=== PATIENT | male | born 1960 ===

== ENCOUNTER 2021-08-19 18:36 | Emergency (ER) | payer SELFPAY ==
--- NOTE | 2021-08-19 18:52 | EDM.PDOC ---
ED HPI GENERAL MEDICAL PROBLEM - General Stated Complaint: DIABETIC EMERGENCY Time Seen by Provider: 08/19/21 18:48 Source of Information: Reports: Patient History Limitations: Reports: No Limitations - History of Present Illness INITIAL COMMENTS - FREE TEXT/NARRATIVE: pt comes in by EMS after hypoglycemic episode, he passed ut shortly after he took NovoLog 8 units while having dinner, his BS noted to be in the 30s, he was started on d50 by EMS and gained consciousness, BS now here 86, pt is alert and oriented, tolerating PO fluids, denies any pain, / any resp/ CV/ GI sx or any other concerns. ED ROS GENERAL - Review of Systems Review Of Systems: See Below Constitutional: Reports: Weakness, Fatigue. Denies: Fever, Diaphoresis HEENT: Reports: No Symptoms Respiratory: Reports: No Symptoms Cardiovascular: Reports: No Symptoms GI/Abdominal: Reports: No Symptoms Skin: Reports: No Symptoms Neurological: Reports: Dizziness. Denies: Seizure Psychiatric: Reports: No Symptoms ED EXAM, GENERAL - Physical Exam Exam: See Below Exam Limited By: No Limitations General Appearance: Alert, Anxious Nose: Normal Inspection Throat/Mouth: Normal Inspection, Normal Oropharynx Head: Atraumatic, Normocephalic Neck: Normal Inspection, Supple, Non-Tender Respiratory/Chest: No Respiratory Distress, Lungs Clear Cardiovascular: Normal Peripheral Pulses, Regular Rate, Rhythm, No Murmur GI/Abdominal: Normal Bowel Sounds, Soft, Non-Tender Neurological: Alert, Oriented, CN II-XII Intact, No Motor/Sensory Deficits Psychiatric: Anxious Skin Exam: Warm, Dry Course - Vital Signs Text/Narrative:: shortly after arrival , pt stated he is feeling fine and signed AMA. pt is indeed coherent, and was allowed to do so, his vitals are stable and ordered labs were canceled. dx... hypoglycemic episode/ resolved/ incomplete work-up. . . - Orders/Labs/Meds Orders: Active Orders 24 hr Category Date Time Status CBC WITH AUTO DIFF [HEME] Stat Lab 08/19/21 18:54 Ordered COMPREHENSIVE METABOLIC PN,CMP [CHEM] Stat Lab 08/19/21 18:54 Ordered Dextrose 5%-Normal Saline with KCl 20 mEq @ 150 mL/Hr ( Med 08/19/21 19:00 Ordered 1000 mL) Dextrose 5%-0.9% NaCl with KCl [D5 NS with 20 mEq KCl] 1,000 ml IV ASDIRECTED Medication Orders Potassium Chloride/Dextrose/Sod Cl (D5 Ns With 20 Meq Kcl) 1,000 mls @ 150 mls/hr IV ASDIRECTED [facility] Labs: Laboratory Tests 08/19/21 08/19/21 08/19/21 Range/Units 18:39 18:49 19:07 POC Glucose 69 L 81 121 H (80-116) mg/dL Meds: Medications Generic Name Dose Route Start Last Admin Trade Name Lina PRN Reason Stop Dose Admin Potassium Chloride/Dextrose/Sod Cl 1,000 mls @ 150 mls/hr 08/19/21 19:00 D5 Ns With 20 Meq Kcl IV ASDIRECTED [facility] Departure - Departure Time of Disposition: 19:31 Disposition: Against Medical Advice 07 Clinical Impression: Hypoglycemia - Discharge Information - My Orders Last 24 Hours: My Active Orders 08/19/21 18:54 CBC WITH AUTO DIFF [HEME] Stat COMPREHENSIVE METABOLIC PN,CMP [CHEM] Stat 08/19/21 19:00 Dextrose 5%-Normal Saline with KCl 20 mEq @ 150 mL/Hr (1000 mL) Dextrose 5%-0.9% NaCl with KCl [D5 NS with 20 mEq KCl] 1,000 ml IV ASDIRECTED - Assessment/Plan Last 24 Hours: My Active Orders 08/19/21 18:54 CBC WITH AUTO DIFF [HEME] Stat COMPREHENSIVE METABOLIC PN,CMP [CHEM] Stat 08/19/21 19:00 Dextrose 5%-Normal Saline with KCl 20 mEq @ 150 mL/Hr (1000 mL) Dextrose 5%-0.9% NaCl with KCl [D5 NS with 20 mEq KCl] 1,000 ml IV ASDIRECTED
[2021-08-19] MEDS ORDERED: Dextrose 5%-0.9% NaCl with KCl 1,000 ML IV SCH (19:00)
== END 2021-08-19 19:15 | disposition left against medical advice (07) ==
LOC: FB.ED 18:36
DX: E16.2 Hypoglycemia, unspecified (principal)
CPT/HCPCS: 82947; 99285